=== PATIENT | male | born 1960 | race African-American/Black ===

== ENCOUNTER 2019-10-18 11:19 | Observation (INO) ==
[2019-10-18] MEDS ORDERED: DILTIAZEM 50 MG/10 ML VIAL IV STA (11:48)
[2019-10-18] MEDS ORDERED: ENOXAPARIN 100 MG/ML SYRINGE SUBCUT STA (11:48)
[2019-10-18 12:04] LABS: Basophils % 0.4 % (0.0-0.8); Eosinophils # 0.1 10*3/uL (0.0-0.87); Eosinophils % 0.9 % (0.00-10.9); Hematocrit 45.6 VOL% (42.0-52.0); Hemoglobin 15.1 GM/DL (14.0-18.0); Immature Granulocytes % 0.4 %; Immature Granulocytes Absolute 0.02 #; Lymphocytes # 1.9 10*3/uL (1.4-4.0); Lymphocytes % 33.7 % (21.2-54.2); Mean Corpuscular HGB Conc 33.1 GM/DL (32-36); Mean Corpuscular Volume 91.4 FL (87-102); Mean Platelet Volume 10.3 FL (9.6-12.0); Monocytes % 7.2 % (1.7-12.7); Neutrophils % 57.4 % (38.7-73.9); Platelet Count 189 T/CUMM (130-400); Red Blood Count 4.99 MC/CUMM (3.8-5.5); Red Cell Distribution Width 12.3 % (9.3-17.3); White Blood Count 5.7 T/CUMM (4-12)
[2019-10-18] MEDS: dilTIAZem Drip 125 MG/125 ML PREMIX IV SCH (12:17)
[2019-10-18 12:29] LABS: Albumin 3.9 G/DL (3.4-5.0); Bilirubin,Total 0.5 MG/DL (0.2-1.0); Calcium 9.1 MG/DL (8.5-10.1); Osmolality,Calculated 278.5 MOS/KG (273-304); Thyroid Stimulating Hormone 0.588 uIU/ml (0.358-3.74); Total Protein 7.6 G/DL (6.4-8.3)
[2019-10-18] MEDS ORDERED: ZALEPLON 5 MG CAPSULE PO PRN (14:18)
[2019-10-18] MEDS ORDERED: DEXTROSE 10% 250 ML BAG IV PRN (14:18)
[2019-10-18] MEDS ORDERED: diphenhydrAMINE CAP 25 MG CAPSULE PO PRN (14:18)
[2019-10-18] MEDS ORDERED: ONDANSETRON 4 MG/2 ML VIAL IV PRN (14:18)
[2019-10-18] MEDS ORDERED: ACETAMINOPHEN 325 MG TABLET PO PRN (14:18)
[2019-10-18] MEDS ORDERED: DOCUSATE SODIUM 100 MG CAPSULE PO PRN (14:18)
[2019-10-18] MEDS ORDERED: GLUCAGON 1 MG VIAL IM PRN (14:18)
[2019-10-18] MEDS ORDERED: lisinopriL 20 MG TABLET PO SCH (14:30)
[2019-10-18] MEDS ORDERED: MAGNESIUM SULF RIDER 2 GM in PREMIX 1 EACH IV ONE (15:24)
[2019-10-18] MEDS ORDERED: POTASSIUM CHLORIDE 20 MEQ TABLET PO ONE (15:24)
[2019-10-18] MEDS: DILTIAZEM CD 120 MG CAPSULE PO SCH (15:28)
[2019-10-18] MEDS: APIXABAN 5 MG TABLET PO SCH ×2 (16:49→23:32)
[2019-10-18] MEDS: ASCORBIC ACID 500 MG TABLET PO SCH ×2 (16:50→23:31)
[2019-10-18] MEDS: INSULIN REGULAR 100 UNIT/ML SUBCUT SCH ×2 (16:52→21:58)
[2019-10-19 05:53] LABS: Basophils % 0.3 % (0.0-0.8); Eosinophils % 0.4 % (0.00-10.9); Hematocrit 44.7 VOL% (42.0-52.0); Immature Granulocytes % 0.3 %; Immature Granulocytes Absolute 0.02 #; Lymphocytes # 2.3 10*3/uL (1.4-4.0); Lymphocytes % 30.9 % (21.2-54.2); Mean Corpuscular HGB Conc 33.6 GM/DL (32-36); Mean Corpuscular Volume 90.9 FL (87-102); Mean Platelet Volume 10.5 FL (9.6-12.0); Monocytes % 9.6 % (1.7-12.7); Neutrophils % 58.5 % (38.7-73.9); Platelet Count 196 T/CUMM (130-400); Red Blood Count 4.92 MC/CUMM (3.8-5.5); Red Cell Distribution Width 12.4 % (9.3-17.3); White Blood Count 7.3 T/CUMM (4-12)
[2019-10-19 06:19] LABS: Calcium 9.1 MG/DL (8.5-10.1); Osmolality,Calculated 274.7 MOS/KG (273-304); Risk Ratio 2.33; VLDL CHOLESTEROL 7.4 MG/DL
[2019-10-19] MEDS: INSULIN REGULAR 100 UNIT/ML SUBCUT SCH ×2 (08:32→11:48)
[2019-10-19] MEDS ORDERED: lisinopriL 20 MG TABLET PO SCH (09:00)
[2019-10-19] MEDS: DILTIAZEM CD 120 MG CAPSULE PO SCH (09:10)
[2019-10-19] MEDS: APIXABAN 5 MG TABLET PO SCH (09:11)
[2019-10-19] MEDS: ASCORBIC ACID 500 MG TABLET PO SCH (09:11)
[2019-10-19 11:52] VITALS: BP 146/85
[2019-10-19] MEDS: dilTIAZem Drip 125 MG/125 ML PREMIX IV SCH (12:00)
[2019-10-19] MEDS ORDERED: TAMSULOSIN 0.4 MG CAPSULE PO SCH (12:30)
[2019-10-19] MEDS ORDERED: POTASSIUM CHLORIDE 20 MEQ TABLET PO SCH (13:30)
[2019-10-19] MEDS ORDERED: MAGNESIUM CHLORIDE 64 MG TABLET PO SCH (13:30)
[2019-10-19] MEDS ORDERED: OLMESARTAN 20 MG TABLET PO SCH (13:30)
[2019-10-20] MEDS ORDERED: ASPIRIN EC 81 MG TABLET PO SCH (09:00)
[2019-10-20] MEDS ORDERED: DILTIAZEM CD 300 MG CAPSULE PO SCH (21:00)
== END 2019-10-19 15:00 | disposition home or self-care (01) ==
LOC: N.EDINP 11:19 → N.ED 11:19 → N.TELEN 15:22
PROVIDERS: ADMIT Internal Medicine Cardiovascular Disease; ATTEND Internal Medicine Cardiovascular Disease